=== PATIENT | male | born 1995 | race Caucasian/White ===

== ENCOUNTER 2018-09-22 09:50 | Emergency (ER) | payer SELFPAY ==
[~2018-09-22] VITALS: Ht 188 cm; Wt 89.8 kg
[2018-09-22 09:56] VITALS: BP 108/45
--- NOTE | 2018-09-22 10:02 | NUR ---
PATIENT AMBULATED TO BED 4.
--- NOTE | 2018-09-22 10:07 | NUR ---
PT BIB SELF C/O SORE THRAOT X4 DAYS. PT REPORTS ACHY PAIN AT 8/10 THAT INCREASES WITH SWALLOWING. PT TX WITH TYLENOL WITH SOME RELIEF. AIRWAYS PATENT, VOICE CLEAR, NO EXCESS SALIVA, RR EVEN, NON-LABORED, BREATH SOUNDS CLEAR. EDEMA, ERYTHEMA, AND WHITE PATCHES ON BL TONSILS. PT DENIES N/V/D OR FEVER. VSS. ER MD TO SEE PT. MEDHX:DENIES RX:TYLENOL
[2018-09-22] MEDS ORDERED: IBUPROFEN 400 MG TAB PO ONE (10:10)
[2018-09-22] MEDS ORDERED: DEXAMETHASONE 10 MG/ML VIAL IM ONE (10:10)
[2018-09-22 11:23] VITALS: BP 110/63
--- NOTE | 2018-09-22 11:23 | NUR ---
Patient discharged with v/s stable. Written and verbal after care instructions given and explained. Patient alert, oriented and verbalized understanding of instructions. Ambulatory with steady gait. All questions addressed prior to discharge. ID band removed. Patient advised to follow up with PMD. Rx of NORCO, NAPROSYN, AND PENICILLIN given. Patient educated on indication of medication including possible reaction and side effects. Opportunity to ask questions provided and answered.
== END 2018-09-22 11:23 | disposition home or self-care (01) ==
LOC: MED 09:50 → EDSEX 09:50 → MED 11:23
DX: J03.90 Acute tonsillitis, unspecified (principal)
CPT/HCPCS: 87081; 96372; 99283; J1100